=== PATIENT | male | born 1970 | race Two or more races ===

== ENCOUNTER 2020-05-17 11:21 | Emergency (ER) | payer OTHER ==
[~2020-05-17] VITALS: Ht 182.9 cm; Wt 110.2 kg
[~2020-05-17 11:21] MED LIST: BENADRYL25 MG PO; MEDROL4 MG PO; PEPCID40 MG PO
[2020-05-17] MEDS ORDERED: KETO10TA2 PO (14:47)
[2020-05-17] MEDS ORDERED: NORFLEX100MG PO (14:47)
== END 2020-05-17 15:00 | disposition home or self-care (01) ==
LOC: ER 11:21
DX: S60.212A Contusion of left wrist, initial encounter (principal); M54.5 Low back pain; W18.09XA Striking against other object with subsequent fall, initial encounter; Y93.89 Activity, other specified; Y92.89 Other specified places as the place of occurrence of the external cause; Y99.8 Other external cause status